=== PATIENT | male | born 1975 | race Caucasian/White ===

== ENCOUNTER 2020-02-08 03:46 | Emergency (ER) | payer OTHER, SELFPAY ==
[2020-02-08 03:47] VITALS: BP 130/87; PULSE 89; RESP 16; TEMP 36.5; O2SAT 100; BMI 33.5
--- NOTE | 2020-02-08 03:55 | ED.RN ---
CONTACTED BRAD FROM [facility] TO DRUG TEST THIS PT
--- NOTE | 2020-02-08 04:09 | ED.DCSUM_ITS ---
- ER Visit Summary Date of Service: 02/08/20 Chief Complaint: Left index finger injury History of Present Illness: The patient is a 44 M who presents with left index finger injury that occurred today while at work. Patient states heavy steel bar fell onto his left index finger. Patient states that the tip of his index finger was smashed and the tip of his finger was avulsed off. Patient describes the pain is throbbing. Patient does admit to some numbness and tingling in his finger. Patient states nothing makes it better or worse. Patient is unsure of his last tetanus. Patient denies any other injuries. Physical Examination: Vital signs are stable. Patient is afebrile. Patient is in no acute distress. Skin is warm dry. There is a full-thickness laceration over the tip of the left index finger. There is loss of tissue. The distal half of the nailbed has been avulsed. The nail plate has been avulsed. Range of motion was limited in all motions of the left index finger secondary to pain. Sensation was intact to light touch in all digits. Capillary refill was less than 2 seconds in all digits. Test Results: X-rays of the left index finger revealed a comminuted displaced fractures of the tuft of the distal phalanx with partial amputation of the tip of the distal phalanx of the left index finger. These were interpreted by the radiologist and myself. Emergency Department Course and Treatment: Patient was given a tetanus booster here. Patient was given a dose of Ancef. Patient was given a dose of morphine. The left index finger was anesthetized with 1% lidocaine and 0.5% Marcaine via digital block. Rongeurs were used to trim the exposed bone. 5 simple interrupted #5-0 Vicryl sutures were used to cover the exposed bone. A Xeroform gauze dressing was applied. Patient tolerated the procedure well. Patient was given a prescription for Keflex. Patient was also given a prescription for Percocet. Patient was instructed to follow-up with a hand surgeon in 3 to 5 days. Patient understood and was agreeable with the plan. All questions were answered. Disposition: Discharge home Impression: Open fracture distal phalanx left index finger This note was generated with [employer] software. It may contain incorrect words, spelling, and punctuation that were not noted in review of the chart prior to signing ED Disposition - Plan for ED Patient: Disposition: Home or Assisted Living Diagnosis: Open fracture of distal phalanx of left index finger Instructions: FRACTURE, Finger (Open) Prescriptions: Cephalexin [Keflex] 500 mg PO Q6 #40 cap Prescription Printed Oxycodone HCl/Acetaminophen [Percocet 5/325] 1 tab PO Q6H PRN PRN 3 Days #12 tab PRN Reason: Pain Prescription Printed Referrals: NOT,DEFINED [NON-STAFF] - Andreas Garcia MD [STAFF PHYSICIAN] - 3-5 Days
--- NOTE | 2020-02-08 04:13 | RAD_ITS ---
STUDY: X-RAY - LEFT HAND, ATTENTION SECOND FINGER REASON FOR EXAM: Male, 44 years old. SMASHED LT INDEX FINGER AT WORK TECHNIQUE: view(s) of the finger were obtained. COMPARISON: None. FINDINGS: Normal metacarpal head. Normal metacarpophalangeal joint. Normal proximal phalanx. Normal middle phalanx. Comminuted displaced fractures of the tuft of the distal phalanx. Small bone fragments are seen in the soft tissues at the medial and lateral aspect of the tip of index finger. There is amputation of the soft tissues at the tip of the index finger. Normal proximal interphalangeal joint. Normal distal interphalangeal joint. RAD/Finger(s) Min 2 Views IMPRESSION: Comminuted displaced fractures of the tuft of the distal phalanx. Small bone fragments are seen in the soft tissues at the medial and lateral aspect of the tip of index finger. There is amputation of the soft tissues at the tip of the index finger. Electronically Signed: Brent Koch, at 6:00 EDT Tel , Service support ,
[2020-02-08] MEDS: Morphine 4 MG/ML Syringe IV ×2 (04:29→04:46)
[2020-02-08] MEDS: Cefazolin 1 GM/50 ML BAG IV (04:29)
[2020-02-08] MEDS: Diphth,Pertuss(Acell),Tet Vac 0.5 ML Vial IM (04:30)
--- NOTE | 2020-02-08 05:39 | ED.RN ---
Called radiology for results. Lisa said she would call.
[2020-02-08] MEDS: Bupivacaine Mpf 0.5% 30 ML VIAL INFILT (06:10)
[2020-02-08 06:17] VITALS: BP 133/95; PULSE 89; RESP 20; O2SAT 99
[2020-02-08 06:40] VITALS: BP 133/95; PULSE 89; RESP 20; O2SAT 99
--- NOTE | 2020-02-08 06:44 | NURSING ---
called dr palma. had to leave message on home phone
--- NOTE | 2020-02-08 06:59 | ED.RN ---
DR. REAGAN DID NOT CALL DR. LANDIN BACK AFTER BEING PAGED 3 TIMES BY THE MACHINE CEMENTER. DR. REAGAN INFORMATION INCLUDED ON THE DISCHARGE INSTRUCTIONS.
== END 2020-02-08 07:04 | disposition home or self-care (01) ==
PROVIDERS: Emergency Provider Emergency Medicine
DX: S68.621A Partial traumatic transphalangeal amputation of left index finger, initial encounter (principal); W20.8XXA Other cause of strike by thrown, projected or falling object, initial encounter; Y93.89 Activity, other specified; Y92.89 Other specified places as the place of occurrence of the external cause; Y99.0 Civilian activity done for income or pay; Z23 Encounter for immunization; Z72.0 Tobacco use
CPT/HCPCS: 12001; 11760; 73140; 90715; 96365; 96375; 99285; J7050; A4216